=== PATIENT | female | born 1935 | race Caucasian/White ===

== ENCOUNTER 2017-10-24 06:05 | Day surgery (SDC) | payer MEDICARE, OTHER ==
[~2017-10-24] VITALS: Ht 154.9 cm; Wt 52.7 kg
[2017-10-24] MEDS ORDERED: RINGERS SOLUTION,LACTATED 500 ML IV ONE ×3 (06:22→07:00)
[2017-10-24] MEDS ORDERED: TROPICAMIDE 1% 2 ML OPHTHALMIC SOLUTION ONE (06:23)
[2017-10-24] MEDS ORDERED: TETRACAINE HCL/PF 0.5% 4 ML OPHTHALMIC SOLUTION ONE (06:23)
[2017-10-24] MEDS ORDERED: CYCLOPENTOLATE HCL 1% 2 ML OPHTHALMIC SOLUTION ONE (06:23)
[2017-10-24] MEDS ORDERED: FLURBIPROFEN SODIUM 0.03% 2.5 ML OPHTHALMIC SOLUTION ONE (06:23)
[2017-10-24] MEDS ORDERED: PHENYLEPHRINE HCL 2.5% 2 ML OPHTHALMIC SOLUTION ONE (06:23)
[2017-10-24] MEDS ORDERED: BESIFLOXACIN HCL 0.6% 5 ML OPHTHALMIC SUSPENSION OD SCH (06:45)
[2017-10-24] MEDS ORDERED: TETRACAINE HCL VISCOUS 0.5% 5 ML OPHTHALMIC SOLUTION OD SCH (06:45)
[2017-10-24] MEDS ORDERED: KETOROLAC TROMETHAMINE 0.5% 5 ML OPHTHALMIC SOLUTION ONE (06:47)
[2017-10-24] MEDS ORDERED: MULT-1192 PO (06:57)
[2017-10-24] MEDS: PHENYLEPHRINE HCL 2.5% 2 ML OPHTHALMIC SOLUTION OD SCH ×3 (07:07→07:26)
[2017-10-24] MEDS: MOXIFLOXACIN HCL 0.5% 3 ML OPHTHALMIC SOLUTION OD SCH ×3 (07:08→07:26)
[2017-10-24] MEDS: CYCLOPENTOLATE HCL 2% 2 ML OPHTHALMIC SOLUTION OD SCH ×3 (07:09→07:26)
[2017-10-24] MEDS: KETOROLAC TROMETHAMINE 0.5% 5 ML OPHTHALMIC SOLUTION OD SCH ×3 (07:09→07:25)
[2017-10-24] MEDS: TETRACAINE HCL/PF 0.5% 4 ML OPHTHALMIC SOLUTION OD SCH ×3 (07:16→07:26)
[2017-10-24] MEDS ORDERED: FentaNYL CITRATE-PF 100 MCG/2 ML VIAL IVP ONE (12:00)
[2017-10-24] MEDS ORDERED: MIDAZOLAM HCL 2 MG/2 ML VIAL IVP ONE (12:00)
== END 2017-10-24 08:45 | disposition home or self-care (01) ==
LOC: SURGERY 06:05
PROVIDERS: ATTEND Ophthalmology
DX: E11.36 Type 2 diabetes mellitus with diabetic cataract (principal); H25.11 Age-related nuclear cataract, right eye; I10 Essential (primary) hypertension; Z90.49 Acquired absence of other specified parts of digestive tract
CPT/HCPCS: 66984; C1780; J2250; J3010; J7120

== ENCOUNTER 2017-12-26 06:37 | Day surgery (SDC) | payer MEDICARE, OTHER ==
[~2017-12-26] VITALS: Ht 154.9 cm; Wt 47.7 kg
[~2017-12-26 06:37] MED LIST: DONE5TAB5 PO; MULT-1192 PO
[2017-12-26] MEDS ORDERED: MIDAZOLAM HCL 2 MG/2 ML VIAL IVP ONE (06:38)
[2017-12-26] MEDS ORDERED: RINGERS SOLUTION,LACTATED 500 ML IV ONE ×2 (07:00→07:04)
[2017-12-26] MEDS ORDERED: ACETAMINOPHEN 325 MG TABLET PO PRN (07:00)
[2017-12-26] MEDS ORDERED: MOXIFLOXACIN HCL 0.5% 3 ML OPHTHALMIC SOLUTION ONE (07:03)
[2017-12-26] MEDS ORDERED: CYCLOPENTOLATE HCL 2% 2 ML OPHTHALMIC SOLUTION ONE (07:03)
[2017-12-26] MEDS ORDERED: KETOROLAC TROMETHAMINE 0.5% 5 ML OPHTHALMIC SOLUTION ONE (07:03)
[2017-12-26] MEDS ORDERED: PHENYLEPHRINE HCL 2.5% 2 ML OPHTHALMIC SOLUTION ONE (07:04)
[2017-12-26] MEDS ORDERED: TETRACAINE HCL/PF 0.5% 4 ML OPHTHALMIC SOLUTION ONE (07:04)
[2017-12-26] MEDS: MOXIFLOXACIN HCL 0.5% 3 ML OPHTHALMIC SOLUTION OS SCH ×3 (07:42→07:54)
[2017-12-26] MEDS: TETRACAINE HCL/PF 0.5% 4 ML OPHTHALMIC SOLUTION OS SCH ×3 (07:43→07:55)
[2017-12-26] MEDS: KETOROLAC TROMETHAMINE 0.5% 5 ML OPHTHALMIC SOLUTION OS SCH ×3 (07:43→07:54)
[2017-12-26] MEDS: CYCLOPENTOLATE HCL 2% 2 ML OPHTHALMIC SOLUTION OS SCH ×3 (07:44→07:55)
[2017-12-26] MEDS: PHENYLEPHRINE HCL 2.5% 2 ML OPHTHALMIC SOLUTION OS SCH ×3 (07:44→07:55)
[2017-12-26] MEDS ORDERED: LIDOCAINE HCL/PF 1% 2 ML VIAL INJ ONE (12:00)
[2017-12-26] MEDS ORDERED: BUPIVACAINE HCL/PF 0.75% 10 ML VIAL INJ ONE (12:00)
[2017-12-26] MEDS ORDERED: HYALURONATE SODIUM 12 MG/ML 0.8 ML SYRINGE IO ONE (12:00)
[2017-12-26] MEDS ORDERED: EPINEPHrine 1:1,000 [1 MG/ML] AMP IM ONE (12:00)
[2017-12-26] MEDS ORDERED: PILOCARPINE HCL 4% 15 ML OPHTHALMIC SOLUTION OS ONE (12:00)
[2017-12-26] MEDS ORDERED: POVIDONE-IODINE 10% 15 ML SOLUTION UD TP ONE (12:00)
== END 2017-12-26 09:30 | disposition home or self-care (01) ==
LOC: SURGERY 06:37
PROVIDERS: ATTEND Ophthalmology
DX: H25.12 Age-related nuclear cataract, left eye (principal); I10 Essential (primary) hypertension; Z90.49 Acquired absence of other specified parts of digestive tract; Z98.41 Cataract extraction status, right eye; Z79.899 Other long term (current) drug therapy
CPT/HCPCS: 66984; C1780; J2250; J7120